=== PATIENT | male | born 1940 | race Caucasian/White ===

== ENCOUNTER → 2018-06-13 | Day surgery (SDC) | payer MEDICARE ==
[~2018-06-13] VITALS: Ht 177.8 cm; Wt 97.5 kg
[~2018-06-13] MED LIST: ASPIRIN81 M1 PO; B COMPLEX1 EACH PO; CEFUROXIME AXE500 MG PO; K-DUR 20MEQ20 MEQ PO; LIPITOR10 MG PO; LOPURIN100 MG PO; PREDNISONE10 MG PO; TAMSULOSIN HCL0.4 MG PO; VITAMIN D5000 UNI1 PO
--- NOTE | ~2018-06-13 | O ---
[place], [place] OPERATIVE NOTE NAME: TERRENCE BE SR UNIT #: [id number] ROOM: DOCTOR: SHANDA CASTILLO MD BIRTHDATE: [birth year] DOS: 06/13/2018 GASTROENDOSCOPIC REPORT HISTORY OF PRESENT ILLNESS: An 78-year-old patient who was presented with rectal bleed, undergoing investigation. ALLERGIES: No known medication. PAST MEDICAL HISTORY: Associated with prostate CA and gout. PAST SURGICAL HISTORY: Status post seed implant. SOCIAL HISTORY: Nonsmoker, nonalcohol consumer. FAMILY HISTORY: Noncontributory. PROCEDURE: Today's procedure part of investigation is colonoscopy plus biopsy. PREMEDICATION: Propofol. SCOPE: Olympus forward-viewing colonoscope 10L video. REPORT: After putting the patient in left lateral position and application of lubricant to the scope, the scope was introduced. Thereafter, under direct visualization, advanced through the length of colon without difficulty. Colon mucosa and vascularity carefully examined. Base of cecum explored. Ileocecal valve was defined. Scope was gradually withdrawn. Scattered diverticulosis of sigmoid colon noticed, radiation proctitis. Lower segment of the rectal pouch was noticed, photographed, biopsied. The patient extubated, tolerated the procedure well. IMPRESSION: Radiation proctitis, diverticulosis, no specific therapy is needed at this time. PLAN: High fiber diet. ACTIVITY: Ad salena. FOLLOWUP: Routinely with you in office, p.r.n. visit with us in [facility]. [place], [place] OPERATIVE NOTE NAME: [place] TERRENCE LARA UNIT #: [id number] ROOM: DOCTOR: SHANDA CASTILLO MD BIRTHDATE: [birth year] SHANDA CASTILLO MD CM:OPRECORD:OPERATIVE NOTE 7 0 SHANDA CASTILLO MD 06/13/18950 interface
[2018-06-13 08:23] VITALS: BP 123/78
[2018-06-13 09:02] VITALS: BP 130/80
[2018-06-13 09:32] VITALS: BP 149/92
== END | disposition home or self-care (01) ==
LOC: SDC 06-11 15:30
DX: K57.30 Diverticulosis of large intestine without perforation or abscess without bleeding (principal); K62.7 Radiation proctitis; J45.909 Unspecified asthma, uncomplicated; Z85.46 Personal history of malignant neoplasm of prostate; Z98.890 Other specified postprocedural states; Z79.82 Long term (current) use of aspirin; Z79.899 Other long term (current) drug therapy; Z87.442 Personal history of urinary calculi; Z96.653 Presence of artificial knee joint, bilateral

== ENCOUNTER 2018-11-06 11:47 | Emergency (ER) | payer MEDICARE ==
[~2018-11-06] VITALS: Ht 175.2 cm; Wt 93.9 kg
[2018-11-06 11:49] VITALS: BP 136/90
[2018-11-06 12:19] LABS: BASO % 0.4 % (0.0-1.0); EOS # 0.1 10*3/uL (0.0-0.4); EOS % 1.5 % (1.0-4.0); HEMATOCRIT 45.3 % (42.0-52.0); HEMOGLOBIN 15.4 g/dl (14.0-18.0); LYMPH # 1.2 10*3/uL (1.3-4.4); LYMPH % 15.9 % (27.0-41.0); MEAN CELL VOLUME 95.2 fl (80.0-94.0); MEAN CORPUSCULAR HGB 32.4 pg (27.0-31.0); MEAN PLATELET VOLUME 9.7 fl (9.6-12.3); MONO # 0.7 10*3/uL (0.1-1.0); MONO % 9.3 % (3.0-9.0); NEUT # 5.3 10*3/uL (2.3-7.9); NEUT % 72.6 % (47.0-73.0); PLATELET COUNT AUTOMATED 209 10*3/uL (130-400); RED BLOOD COUNT 4.76 10*6/uL (4.50-5.90); RED CELL DISTRI WIDTH 13.2 % (0-14.5); WHITE BLOOD COUNT 7.2 10*3/uL (4.8-10.8)
[2018-11-06 12:41] LABS: ALBUMIN 3.5 gm/dl (3.1-4.5); CREATININE 1.41 mg/dL (0.70-1.30); POTASSIUM 3.5 mmol/L (3.5-5.1); TOTAL PROTEIN 6.9 gm/dL (6.4-8.2)
== END 2018-11-06 13:52 | disposition home or self-care (01) ==
LOC: ED 11:47
PROVIDERS: Emergency Medicine
DX: R23.8 Other skin changes (principal); Z79.82 Long term (current) use of aspirin; Z79.899 Other long term (current) drug therapy

== ENCOUNTER → 2020-03-06 | Outpatient (CLI) | payer MEDICARE ==
[2020-03-06 10:59] LABS: BUN 23 mg/dl (7-24); CREATININE 1.21 mg/dL (0.70-1.30)
== END | disposition home or self-care (01) ==
LOC: LAB 10:30 → CT 11:00
PROVIDERS: ATTEND Psychiatry & Neurology Neurology
DX: Z01.89 Encounter for other specified special examinations (principal); G70.00 Myasthenia gravis without (acute) exacerbation

== ENCOUNTER → 2020-09-17 | Outpatient (CLI) | payer MEDICARE | END | disposition home or self-care (01) | LOC: US 13:59 | PROVIDERS: ATTEND Internal Medicine | DX: I73.9 Peripheral vascular disease, unspecified (principal); R60.0 Localized edema ==

== ENCOUNTER → 2020-11-23 | Outpatient (CLI) | payer MEDICARE | END | disposition home or self-care (01) | LOC: LAB 13:14 | PROVIDERS: ATTEND Internal Medicine | DX: U07.1 COVID-19 (principal); R05 Cough ==

== ENCOUNTER 2022-03-14 14:15 | Emergency (ER) | payer OTHER ==
[~2022-03-14] VITALS: Wt 99.8 kg
[2022-03-14] MEDS ORDERED: TERAZOSIN HCL5 M1 PO (16:43)
[2022-03-14] MEDS ORDERED: POTASSIUM CHLO20 ME3 PO (16:44)
[2022-03-14] MEDS ORDERED: Pyridostigmine60 MG PO (16:44)
[2022-03-14] MEDS ORDERED: BUMETANIDE0.5 MG PO (16:45)
[2022-03-14 17:17] LABS: BASO % 0.3 % (0.0-1.0); EOS % 0.4 % (1.0-4.0); LYMPH # 0.9 10*3/uL (1.3-4.4); LYMPH % 8.7 % (27.0-41.0); MEAN CELL VOLUME 94.3 fl (80.0-94.0); MEAN CORPUSCULAR HGB 30.8 pg (27.0-31.0); MEAN CORPUSCULAR HGB CONC 32.6 g/dl (33.0-37.0); MEAN PLATELET VOLUME 9.8 fl (9.6-12.3); MONO % 9.9 % (3.0-9.0); NEUT # 8.1 10*3/uL (2.3-7.9); NEUT % 80.4 % (47.0-73.0); PLATELET COUNT AUTOMATED 198 10*3/uL (130-400); RED BLOOD COUNT 4.03 10*6/uL (4.50-5.90); RED CELL DISTRI WIDTH 14.5 % (0-14.5); WHITE BLOOD COUNT 10.1 10*3/uL (4.8-10.8)
[2022-03-14 17:33] LABS: ACT PARTIAL THROMBO TIME 28.3 SECONDS (20.0-32.1); ALKALINE PHOSPHATASE 76 U/L (46-116); BUN 13 mg/dl (9-23); CHLORIDE 100 mmol/L (98-107); CREATININE 1.31 mg/dL (0.70-1.30); INTERNATIONAL NORM RATIO 1.1 (2.0-3.5); LIPASE 20 U/L (12-53); POTASSIUM 3.6 mmol/L (3.4-5.1); SODIUM 135 mmol/L (136-145)
[2022-03-14 17:48] LABS: SGPT/ALT < 7 U/L (10-49)
[2022-03-14 19:01] VITALS: BP 113/66
[2022-03-14] MEDS ORDERED: PREDNISONE20 M1 PO (19:10)
[2022-03-14] MEDS ORDERED: TAMIFLU 75MG CA75 MG PO (19:10)
[2022-03-14] MEDS ORDERED: COMBIVENT RESPIM4 GM INH (19:11)
== END 2022-03-14 19:17 | disposition home or self-care (01) ==
LOC: ED 14:15
PROVIDERS: Family Medicine
DX: J10.1 Influenza due to other identified influenza virus with other respiratory manifestations (principal); J44.1 Chronic obstructive pulmonary disease with (acute) exacerbation; Z79.899 Other long term (current) drug therapy; Z79.82 Long term (current) use of aspirin; Z98.890 Other specified postprocedural states

== ENCOUNTER → 2022-07-14 | Outpatient (CLI) | payer OTHER ==
[~2022-07-14] MED LIST changes: +BUMETANIDE0.5 MG PO; +COMBIVENT RESPIM4 GM INH; +POTASSIUM CHLO20 ME3 PO; +PREDNISONE20 M1 PO; +Pyridostigmine60 MG PO; +TAMIFLU 75MG CA75 MG PO; +TERAZOSIN HCL5 M1 PO
[2022-07-14 13:26] LABS: BASO # 0.1 10*3/uL (0.0-0.1); BASO % 0.9 % (0.0-1.0); EOS # 0.3 10*3/uL (0.0-0.4); EOS % 4.1 % (1.0-4.0); HEMATOCRIT 40.2 % (42.0-52.0); LYMPH % 30.5 % (27.0-41.0); MEAN CELL VOLUME 92.2 fl (80.0-94.0); MEAN CORPUSCULAR HGB 29.1 pg (27.0-31.0); MEAN CORPUSCULAR HGB CONC 31.6 g/dl (33.0-37.0); MEAN PLATELET VOLUME 9.3 fl (9.6-12.3); MONO # 0.6 10*3/uL (0.1-1.0); MONO % 9.2 % (3.0-9.0); NEUT # 3.7 10*3/uL (2.3-7.9); NEUT % 55.1 % (47.0-73.0); PLATELET COUNT AUTOMATED 244 10*3/uL (130-400); RED BLOOD COUNT 4.36 10*6/uL (4.50-5.90); RED CELL DISTRI WIDTH 15.5 % (0-14.5); WHITE BLOOD COUNT 6.6 10*3/uL (4.8-10.8)
[2022-07-14 13:51] LABS: ALKALINE PHOSPHATASE 77 U/L (46-116); BUN 11 mg/dl (9-23); CHLORIDE 108 mmol/L (98-107); CHOLESTEROL 149 mg/dL (<200); FREE T4 1.02 ng/dl (0.89-1.76); LDL CHOLESTEROL 86 mg/dL (9-159); POTASSIUM 3.9 mmol/L (3.4-5.1); THYROID STIM HORMONE (HS) 2.523 uIU/ml (0.550-4.780); TOTAL PROTEIN 6.1 gm/dL (6.0-8.0); TRIGLYCERIDES 94 mg/dl (<150); VITAMIN D, 25-HYDROXY 78.3 ng/mL (30-100)
[2022-07-14 13:52] LABS: SGPT/ALT < 7 U/L (10-49)
== END ==
LOC: LAB 13:00
PROVIDERS: ATTEND Internal Medicine
DX: I11.0 Hypertensive heart disease with heart failure (principal); I50.32 Chronic diastolic (congestive) heart failure; I25.10 Atherosclerotic heart disease of native coronary artery without angina pectoris; Z13.21 Encounter for screening for nutritional disorder; Z13.1 Encounter for screening for diabetes mellitus; N40.1 Benign prostatic hyperplasia with lower urinary tract symptoms; Z13.0 Encounter for screening for diseases of the blood and blood-forming organs and certain disorders involving the immune mechanism; Z13.220 Encounter for screening for lipoid disorders; Z13.228 Encounter for screening for other metabolic disorders; Z13.29 Encounter for screening for other suspected endocrine disorder; Z13.6 Encounter for screening for cardiovascular disorders; Z13.89 Encounter for screening for other disorder; Z13.9 Encounter for screening, unspecified

== ENCOUNTER 2022-08-06 02:21 | Emergency (ER) | payer OTHER ==
[~2022-08-06] VITALS: Wt 90.7 kg
[2022-08-06 02:39] VITALS: BP 166/94
[2022-08-06 03:08] LABS: BILIRUBIN Negative (Negative); BLOOD 2+ (Negative); CLARITY Clear (Clear); COLOR Yellow (Yellow); GLUCOSE Negative (Negative); KETONE Negative (Negative); LEUKO ESTERASE Negative (Negative); NITRITE Negative (Negative); UROBILINOGEN 0.2 E.U./dl (0.0-1.0)
[2022-08-06 03:16] LABS: RBC 31-40 rbc/hpf (0-2)
== END 2022-08-06 03:45 | disposition home or self-care (01) ==
LOC: ED 02:21
PROVIDERS: Internal Medicine
DX: R33.9 Retention of urine, unspecified (principal); J45.909 Unspecified asthma, uncomplicated; M10.9 Gout, unspecified; E78.00 Pure hypercholesterolemia, unspecified; Z87.442 Personal history of urinary calculi; C61 Malignant neoplasm of prostate; Z96.652 Presence of left artificial knee joint; Z98.890 Other specified postprocedural states

== ENCOUNTER 2023-01-22 21:59 | Emergency (ER) | payer OTHER ==
[~2023-01-22] VITALS: Ht 175.2 cm; Wt 93.6 kg
[2023-01-22 22:35] LABS: BASO % 0.2 % (0.0-1.0); EOS % 0.1 % (1.0-4.0); HEMATOCRIT 40.5 % (42.0-52.0); LYMPH # 1.2 10*3/uL (1.3-4.4); LYMPH % 7.2 % (27.0-41.0); MEAN CELL VOLUME 97.8 fl (80.0-94.0); MEAN CORPUSCULAR HGB 30.4 pg (27.0-31.0); MEAN CORPUSCULAR HGB CONC 31.1 g/dl (33.0-37.0); MEAN PLATELET VOLUME 9.9 fl (9.6-12.3); MONO # 0.8 10*3/uL (0.1-1.0); MONO % 5.1 % (3.0-9.0); NEUT % 86.4 % (47.0-73.0); PLATELET COUNT AUTOMATED 179 10*3/uL (130-400); RED BLOOD COUNT 4.14 10*6/uL (4.50-5.90); RED CELL DISTRI WIDTH 16.3 % (0-14.5); WHITE BLOOD COUNT 16.2 10*3/uL (4.8-10.8)
[2023-01-22 22:47] LABS: ACT PARTIAL THROMBO TIME 26.8 SECONDS (20.0-32.1); INTERNATIONAL NORM RATIO 1.1 (2.0-3.5)
[2023-01-22 22:57] LABS: ALKALINE PHOSPHATASE 126 U/L (46-116); BUN 29 mg/dl (9-23); CHLORIDE 100 mmol/L (98-107); LIPASE 24 U/L (12-53); SGPT/ALT < 7 U/L (10-49); TOTAL PROTEIN 7.1 gm/dL (6.0-8.0)
[2023-01-23] MEDS ORDERED: FINASTERIDE5 M1 PO (05:00)
[2023-01-23] MEDS ORDERED: ALLOPURINOL100 MG PO (05:01)
[2023-01-23] MEDS ORDERED: GABAPENTIN100 M2 PO (05:02)
[2023-01-23] MEDS ORDERED: INDOMETHACIN ER75 M1 PO (05:03)
[2023-01-23] MEDS ORDERED: TERAZOSIN HCL2 M1 PO (05:03)
[2023-01-23 07:30] VITALS: BP 86/57
== END 2023-01-23 07:37 | disposition short-term general hospital (02) ==
LOC: ED 21:59
PROVIDERS: Internal Medicine
DX: K43.9 Ventral hernia without obstruction or gangrene (principal); M79.89 Other specified soft tissue disorders; J45.909 Unspecified asthma, uncomplicated; M10.9 Gout, unspecified; E78.00 Pure hypercholesterolemia, unspecified; Z87.442 Personal history of urinary calculi; Z96.652 Presence of left artificial knee joint; Z98.890 Other specified postprocedural states

== ENCOUNTER 2023-12-20 16:06 | Emergency (ER) | payer OTHER ==
[~2023-12-20] VITALS: Ht 172.7 cm
[2023-12-20] VITALS (14 sets, daily range): BP systolic 109–122; BP diastolic 60–72
[~2023-12-20 16:06] MED LIST changes: -ELIQUIS5 M1 PO; -MINIPRESS5 M1 PO; -NORMODYNE,TRAN100 MG PO; -OXYBUTYNIN5 MG PO
[2023-12-20] MEDS ORDERED: ELIQUIS5 M1 PO (16:47)
[2023-12-20] MEDS ORDERED: MINIPRESS5 M1 PO (16:48)
[2023-12-20] MEDS ORDERED: OXYBUTYNIN5 MG PO (16:49)
[2023-12-20] MEDS ORDERED: NORMODYNE,TRAN100 MG PO (16:51)
[2023-12-20 17:59] LABS: MEAN CELL VOLUME 71.7 fl (80.0-94.0); MEAN CORPUSCULAR HGB 20.7 pg (27.0-31.0); MEAN CORPUSCULAR HGB CONC 28.8 g/dl (33.0-37.0); MEAN PLATELET VOLUME 8.3 fl (9.6-12.3); PLATELET COUNT AUTOMATED 331 10*3/uL (130-400); RED CELL DISTRI WIDTH 18.3 % (0-14.5); WHITE BLOOD COUNT 6.3 10*3/uL (4.8-10.8)
[2023-12-20 18:00] LABS: MANUAL DIFF REFLEX YES
[2023-12-20 18:07] LABS: HEMATOCRIT 20.8 % (42.0-52.0)
[2023-12-20 18:09] LABS: ACT PARTIAL THROMBO TIME 26.3 SECONDS (20.0-32.1)
[2023-12-20 18:23] LABS: BASOPHILS 1 % (0-1); PLATELET SUFFICIENCY NORMAL (NORMAL); POLYCHROMASIA SLIGHT; TARGET CELLS FEW; TOTAL CELLS COUNTED 100 #CELLS
[2023-12-20 18:24] LABS: ACANTHOCYTES FEW; ALKALINE PHOSPHATASE 69 U/L (46-116); BUN 11 mg/dl (9-23); BURR CELLS FEW; CHLORIDE 104 mmol/L (98-107); POTASSIUM 3.6 mmol/L (3.4-5.1); ROULEAUX SLIGHT; SPHEROCYTES FEW; TOTAL PROTEIN 5.4 gm/dL (6.0-8.0)
[2023-12-20 18:25] LABS: SGPT/ALT < 7 U/L (5-49)
[2023-12-20] MEDS ORDERED: SODIUM CHLORIDE 0.9% 500 ML IV ONE (19:15)
[2023-12-21] VITALS: BP 115/66
[2023-12-21 00:30] VITALS: BP 122/67
[2023-12-21 01:00] VITALS: BP 101/55
== END 2023-12-21 01:45 | disposition left against medical advice (07) ==
LOC: ED 16:06
PROVIDERS: Nurse Practitioner
DX: D64.9 Anemia, unspecified (principal); J45.909 Unspecified asthma, uncomplicated; M10.9 Gout, unspecified; E78.00 Pure hypercholesterolemia, unspecified; R10.2 Pelvic and perineal pain; Z87.442 Personal history of urinary calculi; Z53.29 Procedure and treatment not carried out because of patient's decision for other reasons; Z98.890 Other specified postprocedural states; Z96.652 Presence of left artificial knee joint

== ENCOUNTER → 2023-12-20 | Outpatient (CLI) | payer OTHER ==
[~2023-12-20] MED LIST changes: +ALLOPURINOL100 MG PO; +ELIQUIS5 M1 PO; +FINASTERIDE5 M1 PO; +GABAPENTIN100 M2 PO; +INDOMETHACIN ER75 M1 PO; +MINIPRESS5 M1 PO; +NORMODYNE,TRAN100 MG PO; +OXYBUTYNIN5 MG PO; +TERAZOSIN HCL2 M1 PO
[2023-12-20 14:39] LABS: HEMATOCRIT 21.9 % (42.0-52.0); MEAN CELL VOLUME 71.8 fl (80.0-94.0); MEAN CORPUSCULAR HGB 20.3 pg (27.0-31.0); MEAN CORPUSCULAR HGB CONC 28.3 g/dl (33.0-37.0); MEAN PLATELET VOLUME 8.7 fl (9.6-12.3); PLATELET COUNT AUTOMATED 359 10*3/uL (130-400); RED BLOOD COUNT 3.05 10*6/uL (4.50-5.90); RED CELL DISTRI WIDTH 18.6 % (0-14.5); WHITE BLOOD COUNT 6.5 10*3/uL (4.8-10.8)
[2023-12-20 14:41] LABS: MANUAL DIFF REFLEX YES
[2023-12-20 15:05] LABS: BASOPHILS 1 % (0-1); PLATELET SUFFICIENCY NORMAL (NORMAL); POLYCHROMASIA SLIGHT; TOTAL CELLS COUNTED 100 #CELLS
[2023-12-20 15:06] LABS: SCHISTOCYTES FEW
[2023-12-20 15:07] LABS: ACANTHOCYTES FEW; BURR CELLS FEW; ROULEAUX SLIGHT
[2023-12-20 15:11] LABS: ALKALINE PHOSPHATASE 74 U/L (46-116); BUN 11 mg/dl (9-23); CHLORIDE 102 mmol/L (98-107); CHOLESTEROL 121 mg/dL (<200); FREE T4 1.14 ng/dl (0.89-1.76); LDL CHOLESTEROL 64 mg/dL (9-159); POTASSIUM 3.5 mmol/L (3.4-5.1); TOTAL PROTEIN 5.7 gm/dL (6.0-8.0); TRIGLYCERIDES 57 mg/dl (<150)
[2023-12-20 15:12] LABS: VITAMIN D, 25-HYDROXY 66.9 ng/mL (30-100)
[2023-12-20 15:14] LABS: SGPT/ALT < 7 U/L (5-49)
== END | disposition home or self-care (01) ==
LOC: LAB 13:56
PROVIDERS: ATTEND Internal Medicine
DX: I10 Essential (primary) hypertension (principal); E78.2 Mixed hyperlipidemia; E55.9 Vitamin D deficiency, unspecified; D51.9 Vitamin B12 deficiency anemia, unspecified

== ENCOUNTER → 2024-02-15 | Outpatient (CLI) | payer OTHER ==
[~2024-02-15] MED LIST changes: +ELIQUIS5 M1 PO; +IRON325 M3 PO; +MINIPRESS5 M1 PO; +NORMODYNE,TRAN100 MG PO; +OXYBUTYNIN5 MG PO
[2024-02-15 13:56] LABS: HEMATOCRIT 24.2 % (42.0-52.0); MEAN CELL VOLUME 73.6 fl (80.0-94.0); MEAN CORPUSCULAR HGB CONC 28.5 g/dl (33.0-37.0); MEAN PLATELET VOLUME 8.4 fl (9.6-12.3); PLATELET COUNT AUTOMATED 300 10*3/uL (130-400); RED BLOOD COUNT 3.29 10*6/uL (4.50-5.90); RED CELL DISTRI WIDTH 19.5 % (0-14.5); WHITE BLOOD COUNT 6.2 10*3/uL (4.8-10.8)
[2024-02-15 14:03] LABS: MANUAL DIFF REFLEX YES
[2024-02-15 14:13] LABS: ROULEAUX MODERATE; TOTAL CELLS COUNTED 100 #CELLS
[2024-02-15 14:14] LABS: PLATELET SUFFICIENCY NORMAL (NORMAL); SCHISTOCYTES FEW
[2024-02-15 14:19] LABS: ALKALINE PHOSPHATASE 73 U/L (46-116); BUN 13 mg/dl (9-23); CHLORIDE 106 mmol/L (98-107); CHOLESTEROL 112 mg/dL (<200); FREE T4 1.23 ng/dl (0.89-1.76); LDL CHOLESTEROL 55 mg/dL (9-159); SGPT/ALT < 7 U/L (5-49); TOTAL PROTEIN 5.7 gm/dL (6.0-8.0); TRIGLYCERIDES 68 mg/dl (<150)
[2024-02-15 14:23] LABS: VITAMIN D, 25-HYDROXY 57.1 ng/mL (30-100)
== END | disposition home or self-care (01) ==
LOC: LAB 13:28
PROVIDERS: ATTEND Internal Medicine
DX: Z13.0 Encounter for screening for diseases of the blood and blood-forming organs and certain disorders involving the immune mechanism (principal); Z13.21 Encounter for screening for nutritional disorder; Z13.220 Encounter for screening for lipoid disorders; Z13.228 Encounter for screening for other metabolic disorders; Z13.6 Encounter for screening for cardiovascular disorders; Z13.89 Encounter for screening for other disorder; I11.0 Hypertensive heart disease with heart failure; I50.9 Heart failure, unspecified; I25.10 Atherosclerotic heart disease of native coronary artery without angina pectoris; N40.1 Benign prostatic hyperplasia with lower urinary tract symptoms; M47.816 Spondylosis without myelopathy or radiculopathy, lumbar region; M15.0 Primary generalized (osteo)arthritis; G64 Other disorders of peripheral nervous system; M1A.00X0 Idiopathic chronic gout, unspecified site, without tophus (tophi); E78.2 Mixed hyperlipidemia; R26.2 Difficulty in walking, not elsewhere classified; E55.9 Vitamin D deficiency, unspecified; D51.9 Vitamin B12 deficiency anemia, unspecified

== ENCOUNTER 2024-02-16 13:57 | Emergency (ER) | payer OTHER ==
[~2024-02-16] VITALS: Ht 175.2 cm; Wt 89.4 kg
[~2024-02-16 13:57] MED LIST changes: -IRON325 M3 PO
[2024-02-16] MEDS ORDERED: NA FERRIC GLUC CMPL/SUCROSE 62.5 MG/5 ML VIAL IV ONE (17:10)
[2024-02-16 17:32] LABS: HEMATOCRIT 23.2 % (42.0-52.0); MEAN CELL VOLUME 73.7 fl (80.0-94.0); MEAN CORPUSCULAR HGB 21.6 pg (27.0-31.0); MEAN CORPUSCULAR HGB CONC 29.3 g/dl (33.0-37.0); MEAN PLATELET VOLUME 8.3 fl (9.6-12.3); PLATELET COUNT AUTOMATED 300 10*3/uL (130-400); RED BLOOD COUNT 3.15 10*6/uL (4.50-5.90); RED CELL DISTRI WIDTH 19.3 % (0-14.5); WHITE BLOOD COUNT 6.5 10*3/uL (4.8-10.8)
[2024-02-16 17:34] LABS: MANUAL DIFF REFLEX YES
[2024-02-16 17:42] LABS: ACT PARTIAL THROMBO TIME 26.8 SECONDS (20.0-32.1)
[2024-02-16 17:51] LABS: BUN 14 mg/dl (9-23); CHLORIDE 106 mmol/L (98-107); POTASSIUM 4.3 mmol/L (3.4-5.1)
[2024-02-16 17:58] LABS: PLATELET SUFFICIENCY NORMAL (NORMAL); TOTAL CELLS COUNTED 100 #CELLS
[2024-02-16 17:59] LABS: ACANTHOCYTES FEW; BURR CELLS FEW; POLYCHROMASIA SLIGHT
[2024-02-16 18:00] LABS: ROULEAUX SLIGHT; SCHISTOCYTES FEW
[2024-02-16 18:02] LABS: MICROCYTOSIS SLIGHT
[2024-02-16] MEDS ORDERED: IRON325 M3 PO (18:21)
[2024-02-16] MEDS ORDERED: SODIUM CHLORIDE 0.9% 500 ML IV ONE (18:55)
[2024-02-16 19:08] VITALS: BP 121/68
[2024-02-16 19:23] VITALS: BP 114/71
[2024-02-16 19:38] VITALS: BP 121/69
[2024-02-16 19:53] VITALS: BP 129/71
[2024-02-16 20:52] VITALS: BP 127/73
== END 2024-02-16 21:06 | disposition home or self-care (01) ==
LOC: ED 13:57
PROVIDERS: Emergency Medicine
DX: R53.1 Weakness (principal); D64.9 Anemia, unspecified; J44.9 Chronic obstructive pulmonary disease, unspecified; J45.909 Unspecified asthma, uncomplicated; M10.9 Gout, unspecified; E78.00 Pure hypercholesterolemia, unspecified; R10.2 Pelvic and perineal pain; Z87.442 Personal history of urinary calculi; Z98.890 Other specified postprocedural states; Z96.652 Presence of left artificial knee joint

== ENCOUNTER 2024-02-22 15:30 | Emergency (ER) | payer OTHER ==
[~2024-02-22] VITALS: Ht 172.7 cm; Wt 89.4 kg
[~2024-02-22 15:30] MED LIST changes: +IRON325 M3 PO
[2024-02-22 15:57] VITALS: BP 120/76
[2024-02-22 16:37] LABS: BASO % 0.5 % (0.0-1.0); EOS # 0.5 10*3/uL (0.0-0.4); EOS % 7.4 % (1.0-4.0); HEMATOCRIT 28.5 % (42.0-52.0); MEAN CELL VOLUME 78.5 fl (80.0-94.0); MEAN CORPUSCULAR HGB 22.3 pg (27.0-31.0); MEAN CORPUSCULAR HGB CONC 28.4 g/dl (33.0-37.0); MEAN PLATELET VOLUME 8.4 fl (9.6-12.3); MONO # 0.7 10*3/uL (0.1-1.0); MONO % 10.9 % (3.0-9.0); NEUT # 3.3 10*3/uL (2.3-7.9); NEUT % 53.6 % (47.0-73.0); PLATELET COUNT AUTOMATED 275 10*3/uL (130-400); RED BLOOD COUNT 3.63 10*6/uL (4.50-5.90); RED CELL DISTRI WIDTH 23.5 % (0-14.5); WHITE BLOOD COUNT 6.1 10*3/uL (4.8-10.8)
[2024-02-22 16:58] LABS: BUN 12 mg/dl (9-23); CHLORIDE 106 mmol/L (98-107); POTASSIUM 4.3 mmol/L (3.4-5.1)
== END 2024-02-22 17:46 | disposition home or self-care (01) ==
LOC: ED 15:30
PROVIDERS: Emergency Medicine
DX: D64.9 Anemia, unspecified (principal); J44.9 Chronic obstructive pulmonary disease, unspecified; M10.9 Gout, unspecified; E78.00 Pure hypercholesterolemia, unspecified; R10.2 Pelvic and perineal pain; Z87.442 Personal history of urinary calculi; Z96.652 Presence of left artificial knee joint; Z98.890 Other specified postprocedural states

== ENCOUNTER → 2024-07-25 | Outpatient (CLI) | payer OTHER ==
[~2024-07-25] MED LIST changes: +BUMETANIDE1 MG PO; +FLOMAX0.4 MG PO
[2024-07-25 16:56] LABS: BASO % 0.4 % (0.0-1.0); EOS # 0.2 10*3/uL (0.0-0.4); EOS % 1.7 % (1.0-4.0); HEMATOCRIT 28.6 % (42.0-52.0); MEAN CORPUSCULAR HGB 27.1 pg (27.0-31.0); MEAN CORPUSCULAR HGB CONC 30.8 g/dl (33.0-37.0); MEAN PLATELET VOLUME 9.1 fl (9.6-12.3); MONO # 0.9 10*3/uL (0.1-1.0); MONO % 7.9 % (3.0-9.0); NEUT % 74.2 % (47.0-73.0); PLATELET COUNT AUTOMATED 374 10*3/uL (130-400); RED BLOOD COUNT 3.25 10*6/uL (4.50-5.90); RED CELL DISTRI WIDTH 21.2 % (0-14.5); WHITE BLOOD COUNT 10.8 10*3/uL (4.8-10.8)
[2024-07-25 17:36] LABS: ALKALINE PHOSPHATASE 61 U/L (46-116); BUN 19 mg/dl (9-23); CHLORIDE 99 mmol/L (98-107); CHOLESTEROL 133 mg/dL (<200); FREE T4 1.28 ng/dl (0.89-1.76); LDL CHOLESTEROL 79 mg/dL (9-159); POTASSIUM 3.9 mmol/L (3.4-5.1); TOTAL PROTEIN 6.1 gm/dL (6.0-8.0); TRIGLYCERIDES 85 mg/dl (<150)
[2024-07-25 17:37] LABS: SGPT/ALT < 7 U/L (5-49)
== END | disposition home or self-care (01) ==
LOC: LAB 16:19
PROVIDERS: ATTEND Internal Medicine
DX: E55.9 Vitamin D deficiency, unspecified (principal); D51.9 Vitamin B12 deficiency anemia, unspecified; Z13.0 Encounter for screening for diseases of the blood and blood-forming organs and certain disorders involving the immune mechanism; Z13.1 Encounter for screening for diabetes mellitus; Z13.21 Encounter for screening for nutritional disorder; Z13.220 Encounter for screening for lipoid disorders; Z13.228 Encounter for screening for other metabolic disorders; Z13.6 Encounter for screening for cardiovascular disorders; Z13.89 Encounter for screening for other disorder; Z79.899 Other long term (current) drug therapy

== ENCOUNTER 2024-08-08 13:38 | Inpatient (IN) | payer OTHER ==
[~2024-08-08] VITALS: Ht 177.8 cm; Wt 97.2 kg
[2024-08-08 13:45] VITALS: BP 80/50
[2024-08-08] MEDS ORDERED: ATROPINE SULFATE 1% 2 ML BOTTLE SL PRN (13:45)
[2024-08-08] MEDS ORDERED: diazePAM 10 MG/2 ML SYR IV PRN (13:45)
[2024-08-08] MEDS ORDERED: MORPHINE Sulfate 5 MG IV PRN (13:45)
[2024-08-08] MEDS ORDERED: SODIUM CHLORIDE 0.9% 500 ML IV SCH (13:55)
[2024-08-08] MEDS ORDERED: MORPHINE Sulfate 2 MG/ML SYR IV PRN (14:00)
[2024-08-08] MEDS ORDERED: MORPHINE Sulfate 50 MG in SODIUM CHLORIDE 0.9% 45 ML IV SCH (14:15)
[2024-08-08 20:00] VITALS: BP 53/15
[2024-08-08] MEDS ORDERED: ATROPINE SULFATE 1% 2 ML BOTTLE SL SCH (20:00)
== END 2024-08-08 21:34 | DRG 381 ==
LOC: 5E 13:38
PROVIDERS: ADMIT Internal Medicine; ATTEND Internal Medicine
DX: K25.5 Chronic or unspecified gastric ulcer with perforation (principal); C80.0 Disseminated malignant neoplasm, unspecified; Z16.12 Extended spectrum beta lactamase (ESBL) resistance; I10 Essential (primary) hypertension; I25.10 Atherosclerotic heart disease of native coronary artery without angina pectoris; D50.9 Iron deficiency anemia, unspecified; Z86.718 Personal history of other venous thrombosis and embolism; Z85.46 Personal history of malignant neoplasm of prostate